=== PATIENT | male | born 1985 | race Caucasian/White ===

== ENCOUNTER 2017-09-13 23:48 | Emergency (ER) | payer MEDICAID, OTHER ==
[~2017-09-13] VITALS: Ht 190.5 cm; Wt 104.5 kg
[2017-09-14] MEDS ORDERED: ondansetron 4mg rapidly disintigrating tab PO ONE (00:15)
[2017-09-14] MEDS ORDERED: doxycycline hyclate 100mg tablet.DR PO ONE (00:15)
[2017-09-14] MEDS ORDERED: cephalexin 250mg capsule PO ONE (00:15)
[2017-09-14] MEDS ORDERED: DOXY100C43 PO (00:18)
[2017-09-14] MEDS ORDERED: ONDA8TAB9 PO (00:18)
[2017-09-14] MEDS ORDERED: CEPH-572 PO (00:18)
[2017-09-14 00:37] VITALS: BP 118/53
== END 2017-09-14 00:38 | disposition home or self-care (01) ==
LOC: ER 23:48
DX: L08.9 Local infection of the skin and subcutaneous tissue, unspecified (principal); M25.521 Pain in right elbow; M79.89 Other specified soft tissue disorders; Z79.899 Other long term (current) drug therapy
CPT/HCPCS: 99284